=== PATIENT | male | born 1960 | race Caucasian/White ===

== ENCOUNTER 2016-11-09 16:10 | Emergency (ER) | payer MEDICARE, MEDICAID ==
[~2016-11-09] VITALS: Ht 190.5 cm; Wt 136.4 kg
[~2016-11-09 16:10] MED LIST: ALBUTEROL SUL5 MG/ML INH; ALBUTEROL SULF8.5 G1 INH; ALBUTEROL SULF8.5 GM IH; ASPIR-LOW81 MG PO; ASPIRIN325 MG PO; BACTRIM DS TABL1 TAB PO; COL-RITE100 M1 PO; DESYREL100 MG/TAB PO; GABAPENTIN300 MG PO; GABAPENTIN600 M2 PO; H PO; HUMALOG100 U/ML SQ; IBUPROFEN800 M1 PO; K-DUR20 ME1 PO; K-TAB ER20 ME1 PO; KEFLEX500 MG PO; LANTUS100 U/ML SC; LASIX20 M1 PO; LASIX20 MG PO; LEVAQUIN500 MG PO; LEVEMIR100 UNITS/ SC; MUCINEX600 MG PO; NEURONTIN300 MG PO; OXYCODONE/APAP PO; PLAVIX75 MG PO; PREDNISONE20 MG PO; PROVENTIL HFA6.7 G1; STOOL SOFTENER1 EAC1 PO; SYMBICORT 160-4.6 GM IH; TRAMADOL HCL E100 M1 PO; TRAMADOL HCL50 M1 PO; TRAMADOL HCL50 MG PO; TRAZODONE HCL100 M1 PO; ULTRAM50 MG PO; VIBRAMYCIN100 MG PO; [UNRECOGNIZED DRUG - REMARK]
[2016-11-09] MEDS ORDERED: ALBUTEROL2.5 MG/3 M INH (17:29)
== END 2016-11-09 17:55 ==
LOC: EDMED → EDBD 16:10 → EDMED 16:10
DX: M54.5 Low back pain (principal); J40 Bronchitis, not specified as acute or chronic; E11.9 Type 2 diabetes mellitus without complications; F17.200 Nicotine dependence, unspecified, uncomplicated; Z79.4 Long term (current) use of insulin; Z79.82 Long term (current) use of aspirin; Z79.899 Other long term (current) drug therapy